=== PATIENT | male | born 1945 | race Caucasian/White ===

== ENCOUNTER 2016-10-14 11:30 | Outpatient (CLI) ==
[2016-10-14 11:47] LABS: HEMATOCRIT 22.3 % (42.0-52.0); HEMOGLOBIN 7.2 g/dl (14.0-18.0)
== END 2016-10-14 11:31 | disposition home or self-care (01) ==
LOC: NONPT 11:30
PROVIDERS: ATTEND Internal Medicine Nephrology
DX: N18.9 Chronic kidney disease, unspecified (principal); D63.1 Anemia in chronic kidney disease
CPT/HCPCS: 85014; 85018

== ENCOUNTER 2016-11-07 09:06 | Outpatient (CLI) ==
[2016-11-07 09:12] LABS: HEMATOCRIT 24.6 % (42.0-52.0)
== END 2016-11-07 09:07 | disposition home or self-care (01) ==
LOC: NONPT 09:06
PROVIDERS: ATTEND Internal Medicine Nephrology
DX: D64.9 Anemia, unspecified (principal)
CPT/HCPCS: 85014; 85018